=== PATIENT | female | born 1945 | race African-American/Black ===

== ENCOUNTER 2019-05-27 18:24 | Emergency (ER) | payer OTHER, MEDICAID ==
[~2019-05-27] VITALS: Ht 162.6 cm; Wt 90.0 kg
[2019-05-27] MEDS ORDERED: LOPERAMIDE HCL 2MG CAPSULE PO ONE (19:45)
[2019-05-27] MEDS ORDERED: CLONIDINE 0.2MG TABLET PO ONE (20:30)
[2019-05-28 06:00] VITALS: BP 157/99
== END 2019-05-28 11:45 | disposition home or self-care (01) ==
LOC: ER 18:24
DX: R19.7 Diarrhea, unspecified (principal); I10 Essential (primary) hypertension; Z59.0 Homelessness
CPT/HCPCS: 99283